=== PATIENT | male | born 1945 | race Caucasian/White ===

== ENCOUNTER 2024-03-23 06:16 | Outpatient (CLI) | payer MEDICARE, BC, SELFPAY | END 2024-03-23 06:17 | disposition home or self-care (01) | LOC: AMB 03-25 03:01 | PROVIDERS: Visit Provider Family Medicine | DX: R51.9 Headache, unspecified (principal); R20.0 Anesthesia of skin; R53.1 Weakness; R20.2 Paresthesia of skin | CPT/HCPCS: A0425; A0427 ==